=== PATIENT | male | born 1955 | race Caucasian/White ===

== ENCOUNTER 2022-08-06 09:02 | Outpatient (CLI) | payer MEDICARE, BC, SELFPAY | END 2022-08-06 09:03 | disposition home or self-care (01) | LOC: AMB 08-13 14:04 | PROVIDERS: PCP Family Medicine; Visit Provider Family Medicine | DX: R55 Syncope and collapse (principal); R42 Dizziness and giddiness | CPT/HCPCS: A0998 ==

== ENCOUNTER 2023-11-02 06:20 | Day surgery (SDC) | payer MEDICARE, BC, SELFPAY ==
[2023-11-02] VITALS (10 sets, daily range): BP systolic 123–172; BP diastolic 80–101; PULSE 55–63; RESP 12–16; TEMP 36.1–36.6; O2SAT 98–100; BMI 29.0
[2023-11-02] MEDS: BUPIVACAINE 0.5% 30 ML INJECTION (07:20)
--- NOTE | 2023-11-02 07:50 | P.ORPRC_ITS ---
Procedure Note Date of procedure: 11/02/23 Procedure: Preop diagnosis: Right upper extremity carpal tunnel syndrome Postop diagnosis: Right upper extremity carpal tunnel syndrome Procedure: Right upper extremity carpal tunnel release Anesthesia: Local Surgeon: Mervin Lopez MD social service assistant: ZAHIRA Ramon EBL: 0 mL Complications: None Specimens: None Drains: None Indications: The patient has a history of right upper extremity carpal tunnel syndrome sympto ms. Despite appropriate nonoperative management consisting of nighttime bracing and occupational therapy they continue to have symptoms. Operative intervention was recommended. The risks, benefits alternatives and expected outcomes were discussed in detail. These included but were not limited to: Infection, bleeding, injury to blood vessel or nerve, venous thromboembolism. All questions were answered to their satisfaction. The patient was placed supine on the operating room table. Local anesthesia was established with 0.5% Marcaine without epinephrine and 2% lidocaine without epinephrine. The hand was prepped and draped in usual sterile fashion. The limb was elevated the forearm pneumatic tourniquet was inflated to 250 mm of mercury. A longitudinal incision was made centered over the radial border of the ring finger at the base of the palm. Subcutaneous dissection was sharply taken through the palmar fascia and the palmaris brevis to the transverse carpal ligament. The ligament was divided in line with the incision. Proximal and distal dissection was carried with tenotomy and Metzenbaum scissors for a wide decompression of the carpal tunnel. The tourniquet was released, bleeding was controlled with direct pressure. The wound was closed with a 3-0 nylon. A bulky dry dressing was applied, sponge and needle counts were correct x 2. The patient tolerated the procedure well, there were no apparent complications. They were sent to same day surgery in satisfactory condition. Plan: Use of the hand as tolerates. Discontinue the intraoperative dressing on postoperative day 3 and may get the wound wet as tolerates. Follow up in the office in 2 weeks for a wound check and suture removal.
== END 2023-11-02 08:17 | disposition home or self-care (01) ==
PROVIDERS: PCP Family Medicine; Visit Provider Orthopaedic Surgery
PROC: (CPT 64721; principal; 2023-11-02 07:15)
DX: G56.01 Carpal tunnel syndrome, right upper limb (principal)
CPT/HCPCS: 64721; J0665

== ENCOUNTER 2024-08-15 06:24 | Day surgery (SDC) | payer MEDICARE, BC, SELFPAY ==
[2024-08-15] VITALS (8 sets, daily range): BP systolic 113–154; BP diastolic 68–86; PULSE 57–75; RESP 16; TEMP 36.7; O2SAT 97–100; BMI 29.2
[2024-08-15] MEDS: LIDOCAINE 1%-EPI 1:100,000 20 ML INFILTRATI (07:15)
[2024-08-15] MEDS: BUPIVACAINE 0.5 %/EPI 1:200K INJECTION (07:15)
--- NOTE | 2024-08-15 08:01 | P.ORPRC_ITS ---
Procedure Note Date of procedure: 08/15/24 Procedure: Preop diagnosis: Left upper extremity carpal tunnel syndrome Postop diagnosis: Left upper extremity carpal tunnel syndrome Procedure: Left upper extremity carpal tunnel release Anesthesia: Local Surgeon: Mervin Lopez MD parking assistant: NASIR Gomez EBL: 5 mL Complications: None Specimens: None Drains: None Indications: The patient has a history of left upper extremity carpal tunnel syndrome symptoms. Despite appropriate nonoperative management consisting of nighttime bracing and occupational therapy they continue to have symptoms. Operative intervention was recommended. The risks, benefits alternatives and expected outcomes were discussed in detail. These included but were not limited to: Infection, bleeding, injury to blood vessel or nerve, venous thromboembolism. All questions were answered to their satisfaction. The patient was placed supine on the operating room table. Local anesthesia was established with 0.5% Marcaine with epinephrine and 2% lidocaine with epinephrine. The hand was prepped and draped in usual sterile fashion. A longitudinal incision was made centered over the radial border of the ring finger at the base of the palm. Subcutaneous dissection was sharply taken through the palmar fascia and the palmaris brevis to the transverse carpal ligament. The ligament was divided in line with the incision. Proximal and distal dissection was carried with tenotomy and Metzenbaum scissors for a wide decompression of the carpal tunnel. The wound was closed with a 3-0 nylon. A bulky dry dressing was applied, sponge and needle counts were correct x 2. The patient tolerated the procedure well, there were no apparent complications. They were sent to same day surgery in satisfactory condition. Plan: Use of the hand as tolerates. Discontinue the intraoperative dressing on postoperative day 3 and may get the wound wet as tolerates. Follow up in the office in 2 weeks for a wound check and suture removal.
== END 2024-08-15 08:04 | disposition home or self-care (01) ==
LOC: OR 06:26
PROVIDERS: PCP Family Medicine; Visit Provider Orthopaedic Surgery
PROC: (CPT 64721; principal; 2024-08-15 07:15)
DX: G56.02 Carpal tunnel syndrome, left upper limb (principal)
CPT/HCPCS: 64721; J3490

== ENCOUNTER 2025-05-29 17:55 | Outpatient (CLI) | payer MEDICARE, BC, SELFPAY ==
--- NOTE | 2025-05-29 18:15 | MR_ITS ---
EXAM: MRI OF THE RIGHT KNEE CLINICAL INFORMATION: The patient is a 69-year-old with right posterior knee pain. PRIOR SURGERY: None reported. COMPARISON STUDIES: Comparison is made to prior radiographs dated 05/28/2025. TECHNICAL INFORMATION: Imaging was performed on a high-field, 1.5 Lianet MR scanner. Sagittal proton-density and fat-suppressed proton-density imaging of the right knee was produced in addition to coronal proton-density and coronal STIR imaging. Axial proton-density and fat-suppressed T2 imaging was also performed. FINDINGS: Articular/Extraarticular collections: Effusion: Mild. Popliteal cyst: Small, seen on sagittal series 6 image 26. Loose bodies: No well-defined intra-articular loose bodies are present. Subcutaneous and extraarticular soft tissues: Within normal limits. Osseous structures: No evidence for marrow edema or cortical injury. No evidence for fracture or stress injury. No evidence for destructive bony lesion. Ligamentous structures: ACL: The anterior cruciate ligament is abnormal in appearance. There is thickening of the ACL with increased intrasubstance signal intensity and indistinctness of the ACL margins. The findings are in keeping with a severe sprain of the ACL but may also be related to mucoid degeneration. No evidence for transverse disruption of ACL fibers can be seen. PCL: Intact and normal in appearance. MCL: Intact and normal in appearance. LCL: Intact and normal in appearance. Posterolateral corner: Intact and normal in appearance. Posteromedial corner: No posteromedial corner soft tissue injury. Semimembranosus and pes anserine tendons demonstrate no tendinopathy or associated bursitis. Extensor mechanism/Patellar retinacular structures: Patellar tendon: Intact, without tendinopathy. Quadriceps tendon: Intact, without tendinopathy. Retinacula: The medial and lateral retinacula are intact. The medial patellofemoral ligament is intact. Medial compartment: Medial meniscus: The medial meniscus is abnormal in appearance. There is broad- based tearing of the middle and posterior portions of the medial meniscus, seen on sagittal series 5 image 22 and on coronal series 7 image 16. Complex tearing and attenuation of the middle one third is noted involving the superior and inferior surfaces as well as the apical free edge. The posterior horn tearing predominantly involves the apical free edge and inferior surfaces. The area of medial meniscal tearing measures approximately 30 mm in greatest dimension. The anterior horn appears intact. No parameniscal cyst formation is identified. Medial femoral condyle: Grade II chondromalacia can be seen along the weightbearing surfaces of the medial femoral condyle. No full-thickness chondral defects are seen. Medial tibial plateau: No chondromalacia, chondral defect, or osteochondral abnormality. Lateral compartment: Lateral meniscus: No evidence for lateral meniscal tearing is present. No evidence for parameniscal cyst formation can be seen. Lateral femoral condyle: No chondromalacia, chondral defect, or osteochondral abnormality. Lateral tibial plateau: No chondromalacia, chondral defect, or osteochondral abnormality. Patellofemoral compartment: Patella: No chondromalacia, chondral defect, or osteochondral abnormality. Trochlea: Grade II to III chondromalacia can be seen along the central articular surfaces of the femoral trochlea. Neurovascular: No definite neurovascular abnormalities are seen. CONCLUSION: 1. Tearing of the middle and posterior portions of the medial meniscus. No lateral meniscal tearing is seen. 2. Chondromalacia and chondral loss involving the medial femoral condyle and femoral trochlea. 3. Severe sprain versus mucoid degeneration of the ACL. The ligamentous structures of the knee are otherwise intact. 4. No acute bony abnormalities about the knee are seen. 5. Mild knee joint effusion and small popliteal cyst. [facility] Electronically signed on 05/31/2025 11:55:00 AM by Kai Miner M.D.
== END 2025-05-29 17:56 | disposition home or self-care (01) ==
LOC: MRI 17:56
PROVIDERS: PCP Family Medicine; Visit Provider Orthopaedic Surgery
DX: M25.561 Pain in right knee (principal); S83.241A Other tear of medial meniscus, current injury, right knee, initial encounter; M94.261 Chondromalacia, right knee; M25.461 Effusion, right knee
CPT/HCPCS: 73721

== ENCOUNTER 2025-06-27 11:47 | Day surgery (SDC) | payer MEDICARE, BC, SELFPAY ==
[2025-06-27] VITALS (11 sets, daily range): BP systolic 102–125; BP diastolic 59–84; PULSE 54–69; RESP 14–16; TEMP 36.2–36.5; O2SAT 98–100; BMI 29.4
[2025-06-27] MEDS: SODIUM CHLORIDE 0.9 % (FLUSH) 10 ML SYRINGE IVF (12:42)
[2025-06-27] MEDS: LACTATED RINGERS 1000 ML 1,000 ML 100 ML IV (12:42)
[2025-06-27] MEDS: ROPIVACAINE 0.5% 30 ML 150 MG INJECTION (13:22)
--- NOTE | 2025-06-27 13:43 | P.ORPRC_ITS ---
Procedure Note Date of procedure: 06/27/25 Procedure: PREOPERATIVE DIAGNOSIS: 1. Right knee medial meniscus tear POSTOPERATIVE DIAGNOSIS: 1. Right knee medial meniscus tear 2. 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 Right knee arthroscopic partial medial meniscectomy SURGEON: Ron Hightower M.D. DATA PROCESSING CONSULTANT: Jaycob Clinton PA-C. Of note, an certified teacher assistant was critical for this case to aid in patient positioning, knee manipulation, instrument exchange, and closure. ANESTHESIA: Spinal EBL: 25 mL TOURNIQUET: 30 min at 250 torr COMPLICATIONS: None evident INDICATIONS: The patient is a pleasant 69-year-old male who has experienced right knee pain particularly with any twisting or turning. Physical exam was concerning for medial meniscus tear, this was confirmed on MRI. Additionally, attempted nonoperative management has been tried, and failed. Thus, surgery was recommended. FINDINGS: Complex tearing of the posterior horn to midbody medial meniscus. Posterior root was otherwise intact. Medial femoral condyle showed grade 3 chondromalacia broadly through a majority of the weight-bearing portion. Grade 4 chondromalacia trochlear groove over region measuring approximately 16 x 20 mm in the anterior-posterior and medial-lateral dimensions, respectively. Healthy articular cartilage lateral compartment with only small section grade 2 chondromalacia central weight-bearing portion. Lateral meniscus intact. ACL was striated and appeared to have some slight blistering of the tibial insertion anteriorly almost like an osteophyte had been starting to form on the deep surface. It was able to the withstand longitudinal stress, but clearly was not a normal appearing ACL. PCL was otherwise intact and robust. No loose bodies identified. DESCRIPTION OF PROCEDURE: After a thorough discussion of risks, benefits, and alternatives, the patient was brought to the operating room and placed upon the operating table. Induction of anesthesia was undertaken as previously noted. 2g iv Ancef was administered within 1 hr of incision preoperatively. Appropriate time-out was performed identifying proper patient, site, and procedure. The right lower extremity was prepped and draped in the appropriate sterile fashion using ChloraPrep. The limb was exsanguinated and tourniquet inflated. Anterolateral and anteromedial portals were established with an 11 blade, and a diagnostic arthroscopy was performed. This identified the findings as noted above. Following the diagnostic arthroscopy, a partial medial menisectomy was performed with the combination of basket forceps and a motorized shaver. Following this, the meniscus was re-probed and found to be stable. Approximately 33-40% of the overall meniscus required resection. At this stage, the shaver was reinserted into the suprapatellar pouch and all remaining meniscal debris was evacuated. Instruments were removed, excess fluid was drained, and closure performed with 4-0 Monocryl with Steri-Strips. Masoud ssings were applied, the tourniquet deflated, and the patient was awoken from anesthesia and transferred to the PACU in stable condition. PLAN: 1. Weightbear as tolerated operative extremity. Crutch / walker ambulation assistance PRN. 2. Ice, acetominophen and/or ibuprofen, and Oxycodone for pain as needed. 3. Knee range of motion and quad sets/straight leg raise regularly 4. Follow up with PA visit in 1-2 weeks for a wound check and possibly to initiate physical therapy.
--- NOTE | 2025-06-27 13:43 | W.PM.H&PU ---
History & Physical Update History & Physical Update H&P Reviewed and patient assessed: No changes noted
--- NOTE | 2025-06-27 13:45 | P.ANES_ITS ---
Anesthesia Charges Start Date/Time Anesthesia Start Date: 06/27/25 Anesthesia Start Time: 12:47 Stop Date/Time Anesthesia Stop Date: 06/27/25 Anesthesia Stop Time: 13:43 Coding CPT Codes CPT Codes: ANESTH KNEE JOINT SURGERY - 95316 ([id number]) P2 - PATIENT W/MILD SYST DISEASE, QZ - LABOR TRAINING MANAGER SVC W/O DIESEL POWERPLANT MECHANIC HELPER BY
--- NOTE | 2025-06-27 13:45 | W.ANESCHARGE ---
Anesthesia Charges Start Date/Time Anesthesia Start Date: 06/27/25 Anesthesia Start Time: 12:47 Stop Date/Time Anesthesia Stop Date: 06/27/25 Anesthesia Stop Time: 13:43 Coding CPT Codes CPT Codes: ANESTH KNEE JOINT SURGERY - 62593 ([id number]) P2 - PATIENT W/MILD SYST DISEASE, QZ - SENIOR PROJECT LEADER/TEAM LEAD SVC W/O RECTANGULAR TANK COOPER BY
== END 2025-06-27 15:35 | disposition home or self-care (01) ==
LOC: OR 11:49
PROVIDERS: PCP Family Medicine; Visit Provider Orthopaedic Surgery Sports Medicine
PROC: (CPT 29870; principal; 2025-06-27 13:30)
DX: S83.231A Complex tear of medial meniscus, current injury, right knee, initial encounter (principal); M94.261 Chondromalacia, right knee
CPT/HCPCS: 29881; 01400; J0690; J1100; J2250; J2405; J2704; J2795; J7120